=== PATIENT | male | born 1990 | race Two or more races ===

== ENCOUNTER 2018-08-06 17:22 | Emergency (ER) | payer OTHER ==
[~2018-08-06] VITALS: Ht 157.5 cm; Wt 86.2 kg
[2018-08-06 17:32] VITALS: BP 119/81
[2018-08-06 17:40] LABS: Urine WBC None Seen /hpf (0 - 3)
[2018-08-06 17:52] LABS: Urine Amorphous Crystal MANY /hpf (None Seen); Urine Bacteria FEW /hpf (None Seen); Urine Blood Negative /uL (Negative); Urine Mucus FEW (None Seen)
== END 2018-08-06 22:01 | disposition home or self-care (01) ==
LOC: ER 17:27
DX: S33.5XXA Sprain of ligaments of lumbar spine, initial encounter (principal); X50.9XXA Other and unspecified overexertion or strenuous movements or postures, initial encounter; Y93.89 Activity, other specified; Y92.89 Other specified places as the place of occurrence of the external cause; Y99.8 Other external cause status
CPT/HCPCS: 74176; 81001